=== PATIENT | male | born 1970 | race Caucasian/White ===

== ENCOUNTER → 2021-05-12 | Outpatient (CLI) | payer OTHER | END | disposition home or self-care (01) | LOC: LAB 13:05 → LAB SHORT 13:05 | DX: J03.90 Acute tonsillitis, unspecified (principal) | CPT/HCPCS: 87081 ==

== ENCOUNTER 2025-01-03 16:49 | Emergency (ER) | payer OTHER ==
[~2025-01-03] VITALS: Ht 193 cm; Wt 113.8 kg
[2025-01-03 17:24] VITALS: BP 126/87
[2025-01-03] MEDS ORDERED: BACLOFEN10 M4 PO (18:52)
[2025-01-03] MEDS ORDERED: MONT10T PO (18:53)
[2025-01-03] MEDS ORDERED: EPINEPHRIN0.3 MG/0.1 IM (18:53)
[2025-01-03] MEDS ORDERED: DEPO-TESTO200 MG/18 IM (18:53)
== END 2025-01-03 18:54 | disposition home or self-care (01) ==
LOC: ER 16:49
DX: S60.511A Abrasion of right hand, initial encounter (principal); Z79.899 Other long term (current) drug therapy; W22.8XXA Striking against or struck by other objects, initial encounter
CPT/HCPCS: 73130; 99283-25

== ENCOUNTER 2025-01-04 18:12 | Emergency (ER) | payer OTHER ==
[~2025-01-04] VITALS: Ht 193 cm; Wt 113.8 kg
[~2025-01-04 18:12] MED LIST: BACLOFEN10 M4 PO; DEPO-TESTO200 MG/18 IM; EPINEPHRIN0.3 MG/0.1 IM; MONT10T PO
[2025-01-04 19:23] VITALS: BP 144/85
== END 2025-01-04 20:24 | disposition home or self-care (01) ==
LOC: ER 18:12
DX: S16.1XXA Strain of muscle, fascia and tendon at neck level, initial encounter (principal); V43.52XA Car driver injured in collision with other type car in traffic accident, initial encounter; Z79.899 Other long term (current) drug therapy
CPT/HCPCS: 70450; 72125; 99284-25

== ENCOUNTER 2025-03-28 15:05 | Emergency (ER) | payer OTHER ==
[~2025-03-28] VITALS: Ht 193 cm; Wt 113.4 kg
[2025-03-28 15:39] VITALS: BP 129/99
[2025-03-28] MEDS ORDERED: Norco 5-325 Ta1 EACH PO (16:30)
== END 2025-03-28 16:37 | disposition home or self-care (01) ==
LOC: ER 15:05
DX: S50.02XA Contusion of left elbow, initial encounter (principal); Z79.899 Other long term (current) drug therapy; Z79.890 Hormone replacement therapy; X50.0XXA Overexertion from strenuous movement or load, initial encounter
CPT/HCPCS: 73080; 99283-25

== ENCOUNTER 2025-04-22 20:28 | Emergency (ER) | payer OTHER ==
[~2025-04-22] VITALS: Ht 193 cm; Wt 115.7 kg
[~2025-04-22 20:28] MED LIST changes: +Norco 5-325 Ta1 EACH PO
[2025-04-22 20:50] VITALS: BP 157/107
== END 2025-04-22 22:25 | disposition home or self-care (01) ==
LOC: ER 20:28
DX: Z03.823 Encounter for observation for suspected inserted (injected) foreign body ruled out (principal); Z79.890 Hormone replacement therapy; Z79.899 Other long term (current) drug therapy; Z59.89 Other problems related to housing and economic circumstances
CPT/HCPCS: 73060; 99283-25